=== PATIENT | female | born 1930 | race Caucasian/White ===

== ENCOUNTER 2020-07-20 14:20 | Emergency (ER) | payer OTHER ==
[2020-07-20 14:43] VITALS: BMI 24.5
[2020-07-20 17:17] VITALS: BP 148/65; PULSE 62; TEMP 97.8
== END 2020-07-20 17:10 | disposition home or self-care (01) ==
LOC: FER 14:20
DX: Z04.3 Encounter for examination and observation following other accident (principal)
CPT/HCPCS: 70450-TC; 71045-TC-FY; 72125-TC; 72170-TC-FY; 81003; 87086; 87186; 99285-25